=== PATIENT | male | born 1955 | race Asian ===

== ENCOUNTER 2016-08-29 15:45 | Inpatient (IN) | payer OTHER ==
[2016-08-29 15:51] VITALS: BMI 25.9
--- NOTE | 2016-08-29 15:54 | PDOC ---
History of Present Illness - History of Present Illness Initial Comments: 08/29/16 16:07 The patient is a 60 year old male, with a significant past medical history of hypertension, hypercholesterolemia, and kidney stones, who presents to the emergency department with 2 weeks of intermittent chest pain with sudden onset of increased sharp chest pain at 12PM today while he was chopping vegetables. He reports the pain as sharp, 8/10, and diffuse to his entire chest. He states he saw his PCP and has an appointment with the manager portable on Tuesday, however, the severity of the pain today prompted him to come to the ED. He denies shortness of breath, headache and dizziness. He denies fever, chills, nausea, vomit, diarrhea and constipation. He denies dysuria, frequency, urgency and hematuria. Allergies: NKDA Social history: denies toxic habits PCP - Dr. Eladio Olsen [facility] - Dr. Alves <Leola Romero - Last Filed: 08/29/16 17:46> <Vishal Adams - Last Filed: 08/29/16 17:50> - General Chief Complaint: Chest Pain Stated Complaint: CHEST PAIN Past History <Leola Romero - Last Filed: 08/29/16 17:46> - Past Medical History HTN: Yes Hypercholesterolemia: Yes - Psycho/Social/Smoking Cessation Hx Anxiety: No Suicidal Ideation: No Smoking Status: No Smoking History: Never smoked Number of Cigarettes Smoked Daily: 0 Hx Alcohol Use: No Drug/Substance Use Hx: No Substance Use Type: None <Vishal Adams - Last Filed: 08/29/16 17:50> - Past Medical History Allergies/Adverse Reactions: Allergies Allergy/AdvReac Type Severity Reaction Status Date / Time No Known Allergies Allergy Verified 08/29/16 15:51 Home Medications: Ambulatory Orders Losartan Potassium [Cozaar -] 50 mg PO DAILY 09/19/15 Atorvastatin Ca [Lipitor] 20 mg PO HS 08/29/16 Ibuprofen [Motrin] 600 mg PO TID PRN 08/29/16 Review of Systems - Review of Systems Able to Perform ROS?: Yes Comments:: 08/29/16 16:07 GENERAL/CONSTITUTIONAL: No fever or chills. No weakness. HEAD, EYES, EARS, NOSE AND THROAT: No change in vision. No ear pain or discharge. No sore throat. CARDIOVASCULAR: (+) chest pain. No shortness of breath. RESPIRATORY: No cough, wheezing, or hemoptysis. GASTROINTESTINAL: No nausea, vomiting, diarrhea or constipation. GENITOURINARY: No dysuria, frequency, or change in urination. MUSCULOSKELETAL: No joint or muscle swelling or pain. No neck or back pain. SKIN: No rash NEUROLOGIC: No headache, vertigo, loss of consciousness, or change in strength/ sensation. ENDOCRINE: No increased thirst. No abnormal weight change. HEMATOLOGIC/LYMPHATIC: No anemia, easy bleeding, or history of blood clots. ALLERGIC/IMMUNOLOGIC: No hives or skin allergy. <Leola Romero - Last Filed: 08/29/16 17:46> *Physical Exam - Vital Signs Last Vital Signs Temp Pulse Resp BP Pulse Ox 98.2 F 94 H 20 157/102 97 08/29/16 15:49 08/29/16 15:49 08/29/16 15:49 08/29/16 15:49 08/29/16 15:49 - Physical Exam Comments: 08/29/16 16:07 GENERAL: Awake, alert, and fully oriented, in no acute distress HEAD: No signs of trauma EYES: PERRLA, EOMI, sclera anicteric, conjunctiva clear ENT: Auricles normal inspection, hearing grossly normal, nares patent, oropharynx clear without exudates. Moist mucosa NECK: Normal ROM, supple, no lymphadenopathy, JVD, or masses LUNGS: Breath sounds equal, clear to auscultation bilaterally. No wheezes, and no crackles HEART: Regular rate and rhythm, normal S1 and S2, no murmurs, rubs or gallops ABDOMEN: Soft, nontender, normoactive bowel sounds. No guarding, no rebound. No masses EXTREMITIES: Normal range of motion, no edema. No clubbing or cyanosis. No cords, erythema, or tenderness NEUROLOGICAL: Cranial nerves II through XII grossly intact. Normal speech, normal gait SKIN: Warm, Dry, normal turgor, no rashes or lesions noted. <Leola Romero - Last Filed: 08/29/16 17:46> - Vital Signs Last Vital Signs Temp Pulse Resp BP Pulse Ox 98.2 F 94 H 20 157/102 97 08/29/16 15:49 08/29/16 15:49 08/29/16 15:49 08/29/16 15:49 08/29/16 15:49 <Vishal Adams - Last Filed: 08/29/16 17:50> Heart Score/ECG Review - ECG Intrepretation Comment:: 08/29/16 16:11 ECG was read by Dr. Adams at 15:52 Impression: Normal sinus rhythm. Possible inferior infarct Vent. Rate: 89 bpm WI Interval: 164 ms QTc: 423 ms <Leola Romero - Last Filed: 08/29/16 17:46> ED Treatment Course - LABORATORY CBC & Chemistry Diagram: 08/29/16 16:12 08/29/16 16:12 <Leola Romero - Last Filed: 08/29/16 17:46> - LABORATORY CBC & Chemistry Diagram: 08/29/16 16:12 08/29/16 16:12 <Vishal Adams - Last Filed: 08/29/16 17:50> Medical Decision Making - Medical Decision Making 08/29/16 16:08 The patient is a 60 year old male who presents with diffuse chest pain for 2 weeks with increased severity today. The patient appears to be anxious at this time. The patients medical history is significant for hypertension and hypercholesterolemia. I will obtain CXR, Cardiac profile, EKG, cardiac monitoring, CBC, CMP, magnesium , PT/INR, urinalysis, and aspirin to rule out angina. 08/29/16 17:46 Dr. Gabby Newell was paged via phone answering service at this time requesting a call back for doctor to doctor consult regarding patient admission for observation. <Leola Romero - Last Filed: 08/29/16 17:46> *DC/Admit/Observation/Transfer - Attestations Scribe Attestion: 08/29/16 16:10 Documentation prepared by Leola Romero, acting as medical practitioners for Vishal Adams MD <Leola Romero - Last Filed: 08/29/16 17:46> - Discharge Dispostion Admit: Yes - Attestations Physician Attestion: 08/29/16 15:53 I, Dr. Vishal Adams, attest that this document has been prepared under my direction and personally reviewed by me in its entirety. I further attest, that it accurately reflects all work, treatment, procedures and medical decision -making performed by me. <Vishal Adams - Last Filed: 08/29/16 17:50> Diagnosis at time of Disposition: Chest pain Qualifiers: Chest pain type: unspecified Qualified Code(s): R07.9 - Chest pain, unspecified - Discharge Dispostion Condition at time of disposition: Unchanged/Unknown - Referrals Referrals: Eladio Olsen MD [Primary Care Provider] -
[2016-08-29] MEDS ORDERED: ASPIRIN 81 MG CHEWABLE TABLETS PO ONE (16:10)
[2016-08-29] MEDS ORDERED: SODIUM CHLORIDE 1,000 ML IV SCH (16:15)
[2016-08-29] MEDS ORDERED: ASPIRIN 81 MG CHEWABLE TABLETS ONE (16:16)
[2016-08-29 16:20] LABS: BASOPHIL 0.8 % (0-2.0); EOSINOPHIL 1.5 % (0-4.5); MCH 30.4 pg (25.7-33.7); MCHC 34.3 g/dl (32.0-35.9); MEAN CELL VOLUME 88.8 fl (80-96); MEAN PLT VOLUME 10.3 fl (7.5-11.1); NEUTROPHILS 64.3 % (42.8-82.8); PLATELET COUNT 193 K/MM3 (134-434); RDW 13.4 % (11.9-15.9); WHITE BLOOD COUNT 8.7 K/mm3 (4.0-10.0)
[2016-08-29 16:32] LABS: INR 0.97 (0.82-1.09); PROTHROMBIN TIME (PATIENT) 10.7 SEC (9.98-11.88)
[2016-08-29 16:41] LABS: ALBUMIN 4.2 g/dl (3.4-5.0); ANION GAP 11 (8-16); CALCIUM 8.9 mg/dL (8.5-10.1); CO2 27 mmol/L (21-32); CREATININE 1.1 mg/dL (0.7-1.3); GLUCOSE,RANDOM 161 mg/dL (74-106); MAGNESIUM 2.1 mg/dL (1.8-2.4); SGOT/AST 24 U/L (15-37); SGPT/ALT 40 U/L (12-78); TOT PROT 7.6 g/dl (6.4-8.2)
[2016-08-29 16:44] LABS: ALK PHOS 68 U/L (45-117); TROPONIN I 0.03 ng/ml (0.00-0.05)
[2016-08-29] MEDS ORDERED: IBUPROFEN 600 MG TABLET (FP) PO PRN ×2 (22:50→22:54)
[2016-08-30 00:48] LABS: TROPONIN I 0.45 ng/ml (0.00-0.05)
--- NOTE | 2016-08-30 09:59 | CON.CARD ---
Consult Consult Specialty:: Cardiology Referred by:: Dr. Newell Reason for Consultation:: Chest pain - History of Present Illness Chief Complaint: Chest pain History of Present Illness: 60 year old man with a history of HTN, DM II, HLD, seen in office last week with complaints of dyspnea and atypical chest pain. He was scheduled for a nuclear stress test this week however yesterday developed worse chest pain that was sudden onset while preparing food in the kitchen. As this pain was much worse he came to the ER for evaluation. Pt. seen and examined this am in nad. states the pain has resolved. denies any sob. no palpitations. no pnd, orthopnea , or LE edema. No lightheadedness, dizziness, syncope, or near syncope. Of noted he had an abnormal ETT 06/2015 and was scheduled for a nuclear stress test at that time but did not come for the appointment. - History Source History Provided By: Patient, Medical Record Limitations to Obtaining History: No Limitations - Past Medical History Cardio/Vascular: Yes: HTN, Hyperlipdemia Endocrine: Yes: Diabetes Mellitus - Alcohol/Substance Use Hx Alcohol Use: No - Smoking History Smoking history: Never smoked Aproximately how many cigarettes per day: 0 - Social History ADL: Independent History of Recent Travel: No Home Medications - Allergies Allergies/Adverse Reactions: Allergies Allergy/AdvReac Type Severity Reaction Status Date / Time No Known Allergies Allergy Verified 08/29/16 15:51 - Home Medications Home Medications: Ambulatory Orders Losartan Potassium [Cozaar -] 50 mg PO DAILY 09/19/15 Atorvastatin Ca [Lipitor] 20 mg PO HS 08/29/16 Ibuprofen [Motrin] 600 mg PO TID PRN 08/29/16 Family Disease History - Family Disease History Family History: Denies Review of Systems - Review of Systems Constitutional: denies: No Symptoms, Chills, Diaphoresis, Fever, Lethargy, Loss of Appetite, Malaise, Night Sweats, Unintentional Wgt. Loss, Weakness, Other Eyes: denies: No Symptoms, Blind Spots, Blurred Vision, Double Vision, Eye Pain , Floaters, Photophobia, Recent Change in Vision, Other HENT: denies: No Symptoms, Difficult Swallowing, Ear Discharge, Ear Pain, Epistaxis, Gingival Bleeding, Hearing Loss, Mouth Swelling, Nasal Congestion, Ocular Prosthesis, Throat Pain, Toothache, Ringing in Ears, Other Neck: denies: No Symptoms, Decreased ROM, Lumps, Pain on Movement, Stiffness, Swollen Glands, Tenderness, Other Cardiovascular: reports: Chest Pain, Shortness of Breath. denies: No Symptoms, Edema, Palpitations, Other Respiratory: reports: SOB, SOB on Exertion. denies: No Symptoms, Cough, Exercise Intolerance, Hemoptysis, Orthopnea, PND, Snoring, Wheezing, Other Gastrointestinal: denies: No Symptoms, Abdominal Pain, Bloating, Constipation, Diarrhea, Dysphagia, Indigestion, Melena, Nausea, Rectal Bleeding, Vomiting, Vomiting Blood, Other Genitourinary: denies: No Symptoms, Burning, Discharge, Dysuria, Flank Pain, Frequency, Hematuria, Incontinence, Lesions, Menses, Pain, Testicular Mass, Testicular Pain, Testicular Swelling, Urgency, Vaginal Bleeding, Other Breasts: denies: No Symptoms Reported, See HPI, Breast Implants, Discharge from Nipple, Lumps, Pain, Skin Changes, Other Musculoskeletal: denies: No Symptoms, Back Pain, Crepitus, Decreased ROM, Extremity Pain, Joint Pain, Joint Swelling, Muscle Pain, Muscle Cramps, Muscle Weakness, Other Integumentary: denies: No Symptoms, Blister, Bruising, Change in Color, Eczema, Erythema, Incision, Lesions, Lump, Pallor, Pruritis, Rash, Wound, Other Neurological: denies: No Symptoms, Change in LOC, Change in Speech, Confusion, Dizziness, Headache, Incoordination, Numbness, Parasthesia, Pre-Existing Deficit , Seizure, Syncope, Tremors, Unsteady Gait, Weakness, Other Endocrine: denies: No Symptoms, Excessive Sweating, Flushing, Increased Hunger, Increased Thirst, Intolerance to Cold, Intolerance to Heat, Unexplained Weight Gain, Unexplained Weight Loss, Other Hematology/Lymphatic: denies: No Symptoms, Easily Bruised, Excessive Bleeding, Swollen Glands, Other Psychiatric: denies: No Symptoms, Altered Sleep Pattern, Anxiety, Depression, Hallucinations, Panic, Paranoia, Suicidal, Other - Risk Factors Known Risk Factors: Yes: Diabetes Mellitus, Hypercholesterolemia, Hypertension Vital Signs: Vital Signs Temperature 97.6 F 08/30/16 06:00 Pulse Rate 73 08/30/16 06:00 Respiratory Rate 20 08/30/16 06:00 Blood Pressure 147/87 08/30/16 06:00 O2 Sat by Pulse Oximetry (%) 99 08/29/16 22:52 Constitutional: Yes: Well Nourished, No Distress, Calm Eyes: Yes: WNL, Conjunctiva Clear, EOM Intact, PERRL HENT: Yes: WNL, Atraumatic, Normocephalic Neck: Yes: WNL, Supple, Trachea Midline Respiratory: Yes: WNL, Regular, CTA Bilaterally. No: Rales, Rhonchi, Wheezes Gastrointestinal: Yes: WNL, Normal Bowel Sounds, Soft. No: Distention, Tenderness Renal/: Yes: WNL Cardiovascular: Yes: WNL, Regular Rate and Rhythm. No: Bradycardia, Tachycardia , Pulse Irregular, Gallop, Rub, Varicosities JVD: No Carotid Bruit: No PMI: Non-Displaced Heart Sounds: Yes: S1, S2. No: Split S2, S3, S4, Clicks, Gallop, Rub, Bruit Murmur: No: Systolic Murmur, Diastolic Murmur Musculoskeletal: Yes: WNL Extremities: Yes: WNL Edema: No Peripheral Pulses WNL: Yes Peripheral Pulses: 2+ Left Doralis Pedis, 2+ Right Dorsalis Pedis Integumentary: Yes: WNL Neurological: Yes: WNL, Alert, Oriented, Cran Nerves II-XII Intact ...Motor Strength: WNL Psychiatric: Yes: WNL, Alert, Oriented - Other Data Labs, Other Data: INR, PTT INR 0.97 (0.82-1.09) 08/29/16 16:12 Troponin, BNP 08/30/16 00:05 Troponin I 0.45 H D Troponin, BNP 08/30/16 00:05 Troponin I 0.45 H D ekg-08/29-nsr 89bpm, possible inferior infarct, no sig st abnl Echo: Report Reviewed Imaging - Results Chest X-ray: Report Reviewed, Image Reviewed EKG: Report Reviewed, Image Reviewed Other: Report Reviewed, Image Reviewed (tele-nsr, sinus tach, pvcs, apcs) Problem List - Problems (1) Chest pain Code(s): R07.9 - CHEST PAIN, UNSPECIFIED Qualifiers: Chest pain type: unspecified Qualified Code(s): R07.9 - Chest pain, unspecified (2) NSTEMI (non-ST elevated myocardial infarction) Code(s): I21.4 - NON-ST ELEVATION (NSTEMI) MYOCARDIAL INFARCTION (3) HTN (hypertension) Code(s): I10 - ESSENTIAL (PRIMARY) HYPERTENSION (4) HLD (hyperlipidemia) Code(s): E78.5 - HYPERLIPIDEMIA, UNSPECIFIED (5) Diabetes mellitus type 2 in nonobese Code(s): E11.9 - TYPE 2 DIABETES MELLITUS WITHOUT COMPLICATIONS Assessment/Plan 60 year old man with a history of HTN, DM II, HLD, seen in office last week with complaints of dyspnea and atypical chest pain. He was scheduled for a nuclear stress test this week however yesterday developed worse chest pain that was sudden onset while preparing food in the kitchen. As this pain was much worse he came to the ER for evaluation. Chest pain-NSTEMI, multiple cardiac risk factors -troponin overnight increased, slightly above upper limit normal with normal CK level, normal creatinine -ekg showed possible inferior infarct, no sig ST abnl -chest pain has resolved -no events on telemetry -repeat cardiac enzymes now -due to high clinical suspicion of underlying CAD will transfer for cardiac cath to [facility] today -cont ASA 81mg daily and statin for now -hold off on second anti-platelet until cardiac cath HTN-above goal -cont losartan for now -re-evaluate after cardiac cath fro adjustment in meds as needed HLD -cont statin as above
[2016-08-30] MEDS ORDERED: ASPIRIN COATED 81 MG TABLET.EC PO SCH (10:00)
[2016-08-30] MEDS ORDERED: LOSARTAN POTASSIUM 50 MG TABLET (FP) PO SCH (10:00)
[2016-08-30 11:36] VITALS: BP 150/86; PULSE 68; TEMP 98
[2016-08-30 11:52] LABS: TROPONIN I 0.24 ng/ml (0.00-0.05)
--- NOTE | 2016-08-30 12:06 | HP ---
Admitting History and Physical - Past Medical History Cardiovascular: Yes: HTN, Hyperlipdemia Endocrine: Yes: Diabetes Mellitus - Smoking History Smoking history: Never smoked Aproximately how many cigarettes per day: 0 - Alcohol/Substance Use Hx Alcohol Use: No - Social History ADL: Independent History of Recent Travel: No Home Medications - Allergies Allergies/Adverse Reactions: Allergies Allergy/AdvReac Type Severity Reaction Status Date / Time No Known Allergies Allergy Verified 08/29/16 15:51 - Home Medications Home Medications: Ambulatory Orders Losartan Potassium [Cozaar -] 50 mg PO DAILY 09/19/15 Atorvastatin Ca [Lipitor] 20 mg PO HS 08/29/16 Ibuprofen [Motrin] 600 mg PO TID PRN 08/29/16 Physical Examination Vital Signs: Vital Signs Temperature 98 F 08/30/16 10:00 Pulse Rate 68 08/30/16 10:00 Respiratory Rate 18 08/30/16 10:00 Blood Pressure 150/86 08/30/16 10:00 O2 Sat by Pulse Oximetry (%) 100 08/30/16 11:36 Problem List - Problems (1) Chest pain Code(s): R07.9 - CHEST PAIN, UNSPECIFIED Qualifiers: Chest pain type: unspecified Qualified Code(s): R07.9 - Chest pain, unspecified (2) Diabetes mellitus type 2 in nonobese Code(s): E11.9 - TYPE 2 DIABETES MELLITUS WITHOUT COMPLICATIONS (3) HLD (hyperlipidemia) Code(s): E78.5 - HYPERLIPIDEMIA, UNSPECIFIED (4) HTN (hypertension) Code(s): I10 - ESSENTIAL (PRIMARY) HYPERTENSION (5) NSTEMI (non-ST elevated myocardial infarction) Code(s): I21.4 - NON-ST ELEVATION (NSTEMI) MYOCARDIAL INFARCTION
--- NOTE | 2016-08-30 12:40 | EKG ---
Test Reason : Blood Pressure : / mmHG Vent. Rate : 089 BPM Atrial Rate : 089 BPM P-R Int : 164 ms QRS Dur : 074 ms QT Int : 348 ms P-R-T Axes : 056 -17 015 degrees QTc Int : 423 ms NORMAL SINUS RHYTHM NONSPECIFIC ST ABNORMALITY WHEN COMPARED WITH ECG OF 17-JAN-2006 13:09, ST SEGMENT VARIATION Confirmed by RUPERT MAHMOOD MD [id number]) on 08/30/2016 12:40:05 PM Referred By: Confirmed By:RUPERT MAHMOOD MD
[2016-08-30] MEDS ORDERED: ATORVASTATIN CA 20 MG TABLET (FP) PO SCH (22:00)
== END 2016-08-30 13:48 | disposition short-term general hospital (02) | DRG 282 ==
LOC: JER 15:45 → JERBED 17:50 → J4W 20:26 → OBSVTOIN 22:52
PROVIDERS: ADMIT Internal Medicine; ATTEND Internal Medicine
DX: I21.4 Non-ST elevation (NSTEMI) myocardial infarction (principal); I10 Essential (primary) hypertension; E78.5 Hyperlipidemia, unspecified; E11.9 Type 2 diabetes mellitus without complications; R07.89 Other chest pain
CPT/HCPCS: 36415; 71010-TC; 80053; 82550; 82553; 83735; 84484; 85025; 85610; 93005; 93010; 93306-TC; 99285-25; G0378

== ENCOUNTER 2023-05-25 03:17 | Emergency (ER) | payer BC, OTHER ==
[2023-05-25 03:40] VITALS: BMI 24.3
[2023-05-25] MEDS ORDERED: ACETAMINOPHEN INJECTION 100 ML IVPB ONE (04:29)
[2023-05-25] MEDS: ACETAMINOPHEN 1000 MG/100 ML BAG IVPB ONE (04:45)
[2023-05-25 04:53] LABS: BASO % 0.6 % (0-2.0); EOS % 0.6 % (0-4.5); HEMATOCRIT 46.8 % (35.4-49); HEMOGLOBIN 16.1 GM/dL (11.7-16.9); LYMPH % 12.7 % (8-40); MCH 30.9 pg (25.7-33.7); MCHC 34.3 g/dl (32.0-35.9); MEAN CELL VOLUME 90.2 fl (80-96); MEAN PLT VOLUME 10.6 fl (7.5-11.1); MONO % 7.1 % (3.8-10.2); PLATELET COUNT 177 10^3/uL (134-434); RBC 5.19 M/mm3 (4.00-5.60); RDW 13.9 % (11.9-15.9); WHITE BLOOD COUNT 11.9 K/mm3 (4.0-10.0)
[2023-05-25 05:13] LABS: POTASSIUM 4.4 mmol/L (3.5-5.1)
[2023-05-25 05:15] LABS: CALCIUM 9.5 mg/dL (8.5-10.1)
[2023-05-25 05:16] LABS: ALBUMIN 4.2 g/dl (3.4-5.0); BLOOD UREA NITROGEN 12.2 mg/dL (7-18)
[2023-05-25 05:19] LABS: CREATININE 1.1 mg/dL (0.55-1.3)
[2023-05-25 05:23] LABS: BILIRUBIN,TOTAL 1.4 mg/dL (0.2-1); TOT PROT 8.2 g/dl (6.4-8.2)
[2023-05-25] MEDS ORDERED: morphine SULFATE 4 MG/ML VIAL ONE (05:39)
[2023-05-25 05:42] VITALS: RESP 16; TEMP 98.4
[2023-05-25] MEDS: morphine CARPU-JECT 4 MG/1 ML DISP.SYRIN IVPUSH ONE (05:44)
[2023-05-25] MEDS ORDERED: KETOROLAC TROMETHAMINE 15 MG/ML VIAL ONE (09:59)
[2023-05-25] MEDS: KETOROLAC TROMETHAMINE 15 MG/ML VIAL IVPUSH ONE (10:06)
[2023-05-25 10:48] VITALS: BP 100/73; PULSE 105
== END 2023-05-25 10:51 | disposition home or self-care (01) ==
LOC: JER 03:17
PROC: 3E033NZ Introduction of Analgesics, Hypnotics, Sedatives into Peripheral Vein, Percutaneous Approach (ICD-10-PCS; principal; 2023-05-25)
PROC: 3E033GC Introduction of Other Therapeutic Substance into Peripheral Vein, Percutaneous Approach (ICD-10-PCS; 2023-05-25)
PROC: 3E033GC Introduction of Other Therapeutic Substance into Peripheral Vein, Percutaneous Approach (ICD-10-PCS; 2023-05-25)
DX: R10.31 Right lower quadrant pain (principal); N50.811 Right testicular pain; N45.3 Epididymo-orchitis
CPT/HCPCS: 36415; 74177-TC; 76870-TC; 80053; 85025; 93005; 93010; 99285-25; J0131; Q9967